=== PATIENT | female | born 1990 | race Caucasian/White ===

== ENCOUNTER 2017-05-15 11:32 | Outpatient (CLI) | payer BC ==
[~2017-05-15] VITALS: Ht 167.6 cm; Wt 82.3 kg
[~2017-05-15 11:32] MED LIST: Levaquin PO; [UNRECOGNIZED DRUG - OTHER]; [UNRECOGNIZED DRUG - REMARK]
[2017-05-15 11:40] VITALS: BP 138/86
[2017-05-15] MEDS ORDERED: PRENATAL TABLE1 EAC3 PO (12:06)
[2017-05-15 13:22] VITALS: BP 117/74
[2017-05-16] MEDS ORDERED: IBUPROFEN800 MG PO (17:49)
== END 2017-05-15 14:28 | disposition home or self-care (01) ==
LOC: LDRP-OP 11:32 → 2WEST 11:33 → LDRP-OP 06-12 09:39
DX: O47.1 False labor at or after 37 completed weeks of gestation (principal); Z3A.40 40 weeks gestation of pregnancy
CPT/HCPCS: 59025; G0378

== ENCOUNTER 2017-05-16 00:10 | Inpatient (IN) | payer BC ==
[2017-05-16] VITALS (23 sets, daily range): BP systolic 100–150; BP diastolic 59–89
[~2017-05-16] VITALS: Ht 167.6 cm; Wt 82.1 kg
[~2017-05-16 00:10] MED LIST changes: +PRENATAL TABLE1 EAC3 PO
[2017-05-16 06:54] LABS: BASOPHIL (%) 0.3 % (0-1); EOSINOPHIL (%) 0.1 % (0-5); HEMATOCRIT 38.5 % (36.0-46.0); IMMATURE GRANULOCYTE (%) 0.3 % (0.0-0.7); LYMPHOCYTE (%) 10.8 % (15-42); LYMPHOCYTE COUNT 1.6 K/uL (1.0-2.8); MCHC 33.8 G/DL (30.0-36.0); MCV 91.9 FL (83-99); MONOCYTE (%) 4.5 % (3-12); MONOCYTE COUNT 0.7 K/uL (0-0.8); NEUTROPHIL COUNT 12.7 K/uL (1.8-6.4); PLATELET COUNT 228 K/uL (156-360); RBC DIS.WIDTH-CV 13.2 % (11.8-14.6); RBC DIS.WIDTH-SD 44.4 % (39-53); RED BLOOD COUNT 4.19 M/uL (3.80-5.20); WHITE BLOOD COUNT 15.1 K/uL (4.1-10.2)
[2017-05-16] MEDS ORDERED: IBUPROFEN800 MG PO (17:49)
[2017-05-17 06:20] LABS: BASOPHIL (%) 0.3 % (0-1); BASOPHIL COUNT 0.1 K/uL (0-0.1); EOSINOPHIL (%) 0.6 % (0-5); EOSINOPHIL COUNT 0.1 K/uL (0-0.3); HEMATOCRIT 35.4 % (36.0-46.0); HEMOGLOBIN 11.7 G/DL (11.9-15.5); IMMATURE GRANULOCYTE (%) 0.6 % (0.0-0.7); LYMPHOCYTE (%) 14.4 % (15-42); LYMPHOCYTE COUNT 2.2 K/uL (1.0-2.8); MCH 30.7 PG (29.0-34.0); MCHC 33.1 G/DL (30.0-36.0); MCV 92.9 FL (83-99); MONOCYTE (%) 8.2 % (3-12); MONOCYTE COUNT 1.3 K/uL (0-0.8); NEUTROPHIL (%) 75.9 % (45-76); NEUTROPHIL COUNT 11.7 K/uL (1.8-6.4); PLATELET COUNT 194 K/uL (156-360); RBC DIS.WIDTH-CV 13.5 % (11.8-14.6); RBC DIS.WIDTH-SD 45.8 % (39-53); RED BLOOD COUNT 3.81 M/uL (3.80-5.20); WHITE BLOOD COUNT 15.4 K/uL (4.1-10.2)
[2017-05-17 07:23] VITALS: BP 128/77
[2017-05-17 14:43] VITALS: BP 122/72
[2017-05-17 22:47] VITALS: BP 127/64
[2017-05-18 07:23] VITALS: BP 127/73
== END 2017-05-18 12:26 | disposition home or self-care (01) | DRG 775 ==
LOC: LDRP-OP 00:10 → 2WEST 00:11 → LDRP-OP 06-12 14:31
PROVIDERS: Advanced Practice Midwife; Nurse Practitioner
PROC: 3E0R3BZ Introduction of Anesthetic Agent into Spinal Canal, Percutaneous Approach (ICD-10-PCS; principal; 2017-05-16)
PROC: 00HU33Z Insertion of Infusion Device into Spinal Canal, Percutaneous Approach (ICD-10-PCS; principal; 2017-05-16)
PROC: 10907ZC Drainage of Amniotic Fluid, Therapeutic from Products of Conception, Via Natural or Artificial Opening (ICD-10-PCS; principal; 2017-05-16)
PROC: 10E0XZZ Delivery of Products of Conception, External Approach (ICD-10-PCS; principal; 2017-05-16)
DX: O13.4 Gestational [pregnancy-induced] hypertension without significant proteinuria, complicating childbirth (principal); O70.0 First degree perineal laceration during delivery; Z37.0 Single live birth; Z3A.40 40 weeks gestation of pregnancy; O99.213 Obesity complicating pregnancy, third trimester; Z68.29 Body mass index [BMI] 29.0-29.9, adult; E66.3 Overweight
CPT/HCPCS: 59025; 85025; C1755; G0378; J3010; J7120